=== PATIENT | female | born 1985 | race American Indian/Alaskan Native ===

== ENCOUNTER 2017-11-24 14:44 | Emergency (ER) | payer MEDICAID ==
[2017-11-24 14:57] VITALS: BMI 26.1
[2017-11-24 15:03] VITALS: BP 120/64; PULSE 67; RESP 18; TEMP 98.4; O2SAT 100
[2017-11-24] MEDS ORDERED: Sodium Chloride 0.9% 1,000 ML IV STA (15:08)
--- NOTE | 2017-11-24 15:08 | ED PDOC ---
Arrival/HPI - General Chief Complaint: GI Problem Time Seen by Provider: 11/24/17 15:00 Historian: Patient - History of Present Illness Narrative History of Present Illness (Text): 11/24/17 15:00 32 y/o female, pmh including UTI, allergic to bactrim, c/o diarrhea x 1 day. Pt. 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 Past Medical History - Provider Review Nursing Documentation Reviewed: Yes - Infectious Disease Hx of Infectious Diseases: None - Musculoskeletal/Rheumatological Hx Back Pain: Yes - Psychiatric Hx Substance Use: No - Anesthesia Hx Anesthesia: No Hx Anesthesia Reactions: No Hx Malignant Hyperthermia: No - Suicidal Assessment Feels Threatened In Home Enviroment: No Family/Social History - Physician Review Nursing Documentation Reviewed: Yes Family/Social History: Unknown Family HX Smoking Status: Never Smoked Hx Alcohol Use: No Hx Substance Use: No Allergies/Home Meds Allergies/Adverse Reactions: Allergies sulfamethoxazole [From Bactrim] Allergy (Verified 11/24/17 14:55) RASH trimethoprim [From Bactrim] Allergy (Verified 11/24/17 14:55) RASH Home Medications: Home Meds Medication Instructions Recorded Confirmed oxyCODONE [oxyCODONE Immediate 1 tab PO PRN PRN 11/24/17 11/24/17 Release Tab] Review of Systems - Review of Systems Constitutional: absent: Fatigue, Fevers Eyes: absent: Vision Changes ENT: absent: Hearing Changes Respiratory: absent: SOB, Cough Cardiovascular: absent: Chest Pain Gastrointestinal: Diarrhea. absent: Abdominal Pain, Nausea, Vomiting Musculoskeletal: absent: Arthralgias, Myalgias Skin: absent: Rash, Pruritis Neurological: absent: Headache, Dizziness Psychiatric: absent: Anxiety, Depression, Suicidal Ideation Physical Exam Vital Signs Reviewed: Yes Vital Signs Temp Pulse Resp BP Pulse Ox 11/24/17 15:01 98.4 F 67 18 120/64 100 Temperature: Afebrile Blood Pressure: Normal Pulse: Regular Respiratory Rate: Normal Appearance: Positive for: Well-Appearing, Non-Toxic, Comfortable Pain Distress: None Mental Status: Positive for: Alert and Oriented X 3 - Systems Exam Head: Present: Atraumatic, Normocephalic Pupils: Present: PERRL Extroacular Muscles: Present: EOMI Conjunctiva: Present: Normal Mouth: Present: Moist Mucous Membranes Neck: Present: Normal Range of Motion Respiratory/Chest: Present: Clear to Auscultation, Good Air Exchange. No: Respiratory Distress, Accessory Muscle Use Cardiovascular: Present: Regular Rate and Rhythm, Normal S1, S2. No: Murmurs Abdomen: No: Tenderness, Distention, Peritoneal Signs, Rebound, Guarding Back: Present: Normal Inspection Upper Extremity: Present: Normal Inspection. No: Cyanosis, Edema Lower Extremity: Present: Normal Inspection. No: Edema Neurological: Present: GCS=15, CN II-XII Intact, Speech Normal Skin: Present: Warm, Dry, Normal Color. No: Rashes Psychiatric: Present: Alert, Oriented x 3, Normal Insight, Normal Concentration Medical Decision Making ED Course and Treatment: 11/24/17 15:09 -Labs/radiology test as needed -IVF -Observe and reassess 11/24/17 15:22 -Urine hcg is negative -Pt. stated that she refused labs and radiology test and IVF/medication, request to sign out against medical advice. -AMA You leave against medical advised, please follow up with your own pmd and GI within 2 days, return to the ER for continue of the care as you may need. The patient is choosing to leave against medical advice. I have personally explained to the patient that choosing to do so may result in temporary and/or permanent bodily harm or . I have discussed at great length that without further evaluation and monitoring there may be unforeseen circumstances, dehydration, sepsis, , pain, organ failure, rhabdomylosis, c.diff, colitis , appendicitis, and/or deterioration causing permanent bodily harm or as a result of their choice. The patient is alert, oriented x 4 and shows the mental capacity to make clear decisions regarding the patient's health care at this time. The patient continues to wish to leave against medical advice. In light of the patient's decision to leave against medical advice, follow-up has been arranged and the patient is aware of the importance to following up as instructed. The patient has been advised that they should return to the emergency room immediately if they change their mind at any time, or if their condition begins to change or worsen in any way. 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 Disposition/Present on Arrival - Present on Arrival Any Indicators Present on Arrival: No History of DVT/PE: No History of Uncontrolled Diabetes: No Urinary Catheter: No History of Decub. Ulcer: No History Surgical Site Infection Following: None - Disposition Have Diagnosis and Disposition been Completed?: Yes Diagnosis: Diarrhea, Noncompliance Disposition: AGAINST MEDICAL ADVICE Disposition Time: 15:12 Condition: GOOD Additional Instructions: You leave against medical advised, please follow up with your own pmd and GI within 2 days, return to the ER for continue of the care as you may need. Referrals: [facility] at [facility] [place] [Outside] - Follow up with primary Jb Ambrocio MD [Staff Provider] - Follow up with primary Forms: [employer] (Dominican)
== END 2017-11-24 15:38 | disposition left against medical advice (07) ==
LOC: ED 14:44
DX: R19.7 Diarrhea, unspecified (principal)